=== PATIENT | female | born 1975 | race Caucasian/White ===

== ENCOUNTER 2022-12-01 13:05 | Emergency (ER) | payer SELFPAY ==
[~2022-12-01] VITALS: Ht 170 cm; Wt 71.0 kg
[2022-12-01] MEDS ORDERED: NS IV 1000 ML 1,000 ML IV SCH ×2 (13:30→14:45)
[2022-12-01] MEDS ORDERED: KETOROLAC INJ 15 MG/ML VIAL IVP ONE (13:30)
[2022-12-01 13:32] LABS: BASOPHILS % (AUTO) 1 % (0-10); EOSINOPHILS % (AUTO) 0 % (0-10); HEMATOCRIT 42 % (35-52); HEMOGLOBIN 14.3 g/dL (11.5-16.0); LYMPHOCYTES # (AUTO) 1.4 10^3/uL (1.0-4.0); LYMPHOCYTES % (AUTO) 21 % (12-44); MEAN CORPUSCULAR HEMOGLOBIN 29 pg (25-34); MEAN CORPUSCULAR HGB CONC 34 g/dL (32-36); MEAN CORPUSCULAR VOLUME 86 fL (80-99); MEAN PLATELET VOLUME 12.2 fL (9.0-12.2); MONOCYTES # (AUTO) 0.5 10^3/uL (0.0-1.0); MONOCYTES % (AUTO) 8 % (0-12); NEUTROPHILS # (AUTO) 4.5 10^3/uL (1.8-7.8); NEUTROPHILS % (AUTO) 70 % (42-75); PLATELET COUNT 196 10^3/uL (130-400); WHITE BLOOD COUNT 6.4 10^3/uL (4.3-11.0)
--- NOTE | 2022-12-01 13:35 | ED General ---
General Chief Complaint: Head/Cervical Problems Stated Complaint: HEADACHE | FINGER AND FEET PAIN Nursing Triage Note: PT STATES NOT FEELING WELL SINCE WEDNESDAY, EVERYTHING HURTS, PRESSURE ON HEAD, PAIN IN THE NECK, NAUSESA WITH NO VOMITING, DIARRHEA SINCE WEDNESDAY Source of Information: Patient Exam Limitations: No Limitations History of Present Illness Date Seen by Provider: Dec 01, 2022 Time Seen by Provider: 13:12 Initial Comments 47-year-old female presents to the ER with complaints of not feeling well since Wednesday. She reports body aches, headache, neck pain, lightheadedness, mild cough due to postnasal drainage, runny nose. She denies known fevers, but states she woke up twice sweating. She denies shortness of breath, but states that she sometimes catches her self breathing quickly. Reports nausea and diarrhea. Denies abdominal pain, vomiting, sore throat, and dysuria. Patient reports she has a history of walking pneumonia, states that this feels similar. She reports that the symptoms started out with a sudden onset of headache on the top of her head, but quickly also developed generalized body aches. Allergies and Home Medications Allergies Coded Allergies: No Known Drug Allergies (Unverified , 12/01/22) Patient Home Medication List Home Medication List Reviewed: Yes Review of Systems Review of Systems Constitutional: see HPI Past Cdfjwip-Hzusig-Zkadds Hx Patient Social History Tobacco Use?: Yes Tobacco type used: Cigarettes Smoking Status: Current Everyday Smoker Substance use?: No Alcohol Use?: No Immunizations Up To Date Second COVID19 Vaccination [place]um: YES Past Medical History Surgery/Hospitalization HX: KIDNEY STONES, BLADDER STENT, Physical Exam Vital Signs Vital Signs - First Documented 12/01/22 13:14 Temp 36.7 Pulse 118 Resp 20 B/P (MAP) 116/68 (84) Pulse Ox 98 O2 Delivery Room Air Capillary Refill : Less Than 3 Seconds Height, Weight, BMI Height: '" Weight: lbs. oz. 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 Norm as Tested Skin: Normal Color, Warm/Dry Progress/Results/Core Measures Suspected Sepsis SIRS Temperature: Pulse: 118 Respiratory Rate: 20 Laboratory Tests 12/01/22 13:20: White Blood Count 6.4 Blood Pressure 116 /68 Mean: 84 Laboratory Tests 12/01/22 13:20: Creatinine 0.85, Platelet Count 196, Total Bilirubin 0.4 Results/Orders Lab Results Laboratory Tests Test 12/01/22 13:20 12/01/22 14:13 12/01/22 15:11 Range/Units White Blood Count 6.4 4.3-11.0 10^3/uL Red Blood Count 4.94 3.80-5.11 10^6/uL Hemoglobin 14.3 11.5-16.0 g/dL Hematocrit 42 35-52 % Mean Corpuscular Volume 86 80-99 fL Mean Corpuscular Hemoglobin 29 25-34 pg Mean Corpuscular Hemoglobin Concent 34 32-36 g/dL Red Cell Distribution Width 13.9 10.0-14.5 % Platelet Count 196 130-400 10^3/uL Mean Platelet Volume 12.2 9.0-12.2 fL Immature Granulocyte % (Auto) 0 % Neutrophils (%) (Auto) 70 42-75 % Lymphocytes (%) (Auto) 21 12-44 % Monocytes (%) (Auto) 8 0-12 % Eosinophils (%) (Auto) 0 0-10 % Basophils (%) (Auto) 1 0-10 % Neutrophils # (Auto) 4.5 1.8-7.8 10^3/uL Lymphocytes # (Auto) 1.4 1.0-4.0 10^3/uL Monocytes # (Auto) 0.5 0.0-1.0 10^3/uL Eosinophils # (Auto) 0.0 0.0-0.3 10^3/uL Basophils # (Auto) 0.0 0.0-0.1 10^3/uL Immature Granulocyte # (Auto) 0.0 0.0-0.1 10^3/uL Sodium Level 136 135-145 MMOL/L Potassium Level 3.9 3.6-5.0 MMOL/L Chloride Level 102 98-107 MMOL/L Carbon Dioxide Level 20 L 21-32 MMOL/L Anion Gap 14 5-14 MMOL/L Blood Urea Nitrogen 11 7-18 MG/DL Creatinine 0.85 0.60-1.30 MG/DL Estimat Glomerular Filtration Rate 86 BUN/Creatinine Ratio 13 Glucose Level 105 70-105 MG/DL Calcium Level 9.4 8.5-10.1 MG/DL Corrected Calcium 9.2 8.5-10.1 MG/DL Total Bilirubin 0.4 0.1-1.0 MG/DL Aspartate Amino Transf (AST/SGOT) 23 5-34 U/L Alanine Aminotransferase (ALT/SGPT) 16 0-55 U/L Alkaline Phosphatase 100 40-136 U/L Total Protein 7.4 6.4-8.2 GM/DL Albumin 4.2 3.2-4.5 GM/DL Influenza Type A (RT-PCR) Not Detected Not Detecte Influenza Type B (RT-PCR) Not Detected Not Detecte SARS-CoV-2 RNA (RT-PCR) Not Detected Not Detecte Total Creatine Kinase 37 29-168 U/L Urine Color YELLOW Urine Clarity CLEAR Urine pH 5.5 5-9 Urine Specific [place] 1.015 L 1.016-1.022 Urine Protein NEGATIVE NEGATIVE Urine Glucose (UA) NEGATIVE NEGATIVE Urine Ketones NEGATIVE NEGATIVE Urine Nitrite NEGATIVE NEGATIVE Urine Bilirubin NEGATIVE NEGATIVE Urine Urobilinogen 0.2 < = 1.0 MG/DL Urine Leukocyte Esterase NEGATIVE NEGATIVE Urine RBC (Auto) NEGATIVE NEGATIVE Urine RBC RARE /HPF Urine WBC RARE /HPF Urine Squamous Epithelial Cells 5-10 /HPF Urine Crystals NONE /LPF Urine Bacteria NEGATIVE /HPF Urine Casts PRESENT /LPF Urine Hyaline Casts 5-10 H /LPF Urine Mucus NEGATIVE /LPF Urine Culture Indicated NO My Orders Orders - ERICKA DAILEY APRN Covid 19 Inhouse Test (12/01/22 13:20) Influenza A And B By Pcr (12/01/22 13:20) Cbc And Automated Diff (12/01/22 13:26) Comprehensive Metabolic Panel (12/01/22 13:26) Ed Iv/Invasive Line Start (12/01/22 13:26) Ns Iv 1000 Ml (Ns Iv 1000 Ml) (12/01/22 13:30) Ketorolac Injection (Ketorolac Injection (12/01/22 13:30) Chest 1 View, Ap/Pa Only (12/01/22 13:29) Ct Head Wo (12/01/22 14:06) Ua Culture If Indicated (12/01/22 14:08) Urine Bedside (12/01/22 14:08) Creatine Kinase (12/01/22 14:11) Ns Iv 1000 Ml (Ns Iv 1000 Ml) (12/01/22 14:45) Medications Given in ED Current Medications Medications Dose Ordered Sig/Caitlin Route Start Time Stop Time Status Last Admin Dose Admin Ketorolac Tromethamine 15 mg ONCE ONCE IVP 12/01/22 13:30 12/01/22 13:31 DC 12/01/22 13:36 15 MG Vital Signs/I&O 12/01/22 12/01/22 12/01/22 13:14 13:36 16:14 Temp 36.7 36.7 36.7 Pulse 118 90 Resp 20 20 B/P (MAP) 116/68 (84) 100/63 Pulse Ox 98 99 O2 Delivery Room Air Room Air Capillary Refill : Less Than 3 Seconds Blood Pressure Mean: 84 Progress Note : Progress Note Patient seen and evaluated, resting in bed, no acute distress. Based on exam and symptoms, this is likely COVID, flu, or upper respiratory tract infection. Work-up initiated included CBC, CMP COVID and flu swab, chest x-ray. IV fluids and Toradol ordered. 1414 Labs and x-ray reviewed. CBC and CMP grossly normal. COVID and flu negative. Chest x-ray normal. Patient reevaluated. States that her headache has improved, but still present. Patient's blood pressure is low, systolic in the mid 80s. It has remained in the mid 80s after repeat readings. CT of the head, urinalysis, and CK added on. 1604 CT shows no acute findings. CK normal. Urinalysis negative for infection. Blood pressure has improved to over 100 systolic. Low blood pressure related to dehydration, it took patient a while to provide urine sample. Heart rate also improved after 2 L of IV fluids. This is likely a viral illness. Results discussed with patient. Patient is stable for discharge. Discharge instructions and return precautions provided. Diagnostic Imaging Diagonstic Imaging: CT Plain Films/CT/US/NM/MRI: head Comments [facility], [place] NAME: ENRIQUE CHAVEZ [facility] REC#: [id number] PT STATUS: REG ER : 1975 PHYSICIAN: ERICKA DAILEY APRN ADMIT DATE: 12/01/22/ER Signed Date of Exam:12/01/22 CT HEAD WO EXAMINATION: CT head without contrast. TECHNIQUE: Multiple contiguous axial images were obtained through the brain without the use of intravenous contrast. All CT scans use one or more of the following dose optimizing techniques: automated exposure control, MA and/or KvP adjustment based on patient size and exam type or iterative reconstruction. HISTORY: Headache. Nausea. COMPARISON: None available. FINDINGS: No large acute territorial ischemia, mass, or hemorrhage. No midline shift or mass effect. The ventricles, cortical sulci, and basilar cisterns are patent and unremarkable. The orbits are normal. Paranasal sinuses are normal. Mastoid air cells are clear. No soft tissue abnormality is seen. No osseous lesions or fractures are seen. IMPRESSION: 1. No large acute territorial ischemia, mass, or hemorrhage. Dictated by: Dictated on workstation # [id number] Dict: 12/01/22 1428 Trans: 12/01/22 1435 [id number] Interpreted by: OSIEL SAEZ DO Electronically signed by: OSIEL SAEZ DO 12/01/22 1435 Departure Impression Primary Impression: URI (upper respiratory infection) Disposition: 01 HOME, SELF-CARE Condition: Stable Departure-Patient Inst. Decision time for Depature: 16:04 Referrals: NO,LOCAL PHYSICIAN (PCP/Family) Primary Care Physician Patient Instructions: Viral Upper Respiratory Infection, Adult (DC) Add. Discharge Instructions: This is likely a viral illness. Make sure you are taking plenty of water. Return if you continue to get worse, are not getting better, or you develop shortness of breath, or any other new, concerning, or worsening symptoms. All discharge instructions reviewed with patient and/or family. Voiced understanding. Work/School Note: Work Release Form Date Seen in the Emergency Department: Dec 01, 2022 Return to Work: Dec 03, 2022 Restrictions: No Restrictions ERICKA DAILEY APRN Dec 01, 2022 13:35
[2022-12-01 13:46] LABS: ALBUMIN 4.2 GM/DL (3.2-4.5); BILIRUBIN,TOTAL 0.4 MG/DL (0.1-1.0); CALCIUM 9.4 MG/DL (8.5-10.1); CREATININE SERUM 0.85 MG/DL (0.60-1.30); POTASSIUM 3.9 MMOL/L (3.6-5.0); TOTAL PROTEIN 7.4 GM/DL (6.4-8.2)
--- NOTE | 2022-12-01 13:49 | Diagnostic Imaging Report ---
Indication: Cough Frontal chest obtained at 0150 p.m. Heart and mediastinal silhouette are normal in appearance. The lungs are clear. There is no pneumothorax or pleural fluid. IMPRESSION: Negative chest. Dictated by: Dictated on workstation # [id number]
--- NOTE | 2022-12-01 14:33 | Diagnostic Imaging Report ---
EXAMINATION: CT head without contrast. TECHNIQUE: Multiple contiguous axial images were obtained through the brain without the use of intravenous contrast. All CT scans use one or more of the following dose optimizing techniques: automated exposure control, MA and/or KvP adjustment based on patient size and exam type or iterative reconstruction. HISTORY: Headache. Nausea. COMPARISON: None available. FINDINGS: No large acute territorial ischemia, mass, or hemorrhage. No midline shift or mass effect. The ventricles, cortical sulci, and basilar cisterns are patent and unremarkable. The orbits are normal. Paranasal sinuses are normal. Mastoid air cells are clear. No soft tissue abnormality is seen. No osseous lesions or fractures are seen. IMPRESSION: 1. No large acute territorial ischemia, mass, or hemorrhage. Dictated by: Dictated on workstation # [id number]
[2022-12-01 15:40] LABS: BACTERIA,URINE NEGATIVE /HPF; BILIRUBIN,URINE NEGATIVE (NEGATIVE); CLARITY,URINE CLEAR; COLOR,URINE YELLOW; GLUCOSE, URINE (UA) NEGATIVE (NEGATIVE); KETONES,URINE NEGATIVE (NEGATIVE); LEUKOCYTE ESTERASE ,URINE NEGATIVE (NEGATIVE); NITRITE,URINE NEGATIVE (NEGATIVE); PH,URINE 5.5 (5-9); PROTEIN,URINE NEGATIVE (NEGATIVE); RBC,URINE RARE /HPF; WBC,URINE RARE /HPF
[2022-12-01 16:14] VITALS: BP 100/63
== END 2022-12-01 16:14 | disposition home or self-care (01) ==
LOC: ER 13:09
DX: J06.9 Acute upper respiratory infection, unspecified (principal); I95.9 Hypotension, unspecified; F17.210 Nicotine dependence, cigarettes, uncomplicated; Z20.822 Contact with and (suspected) exposure to COVID-19
CPT/HCPCS: 36415; 70450; 71045; 80053; 81000; 82550; 84703; 85025; 87636; 96361; 96374